=== PATIENT | male | born 1995 | race Two or more races ===

== ENCOUNTER 2020-07-28 23:45 | Emergency (ER) | payer OTHER ==
[~2020-07-28] VITALS: Ht 177.8 cm; Wt 70.3 kg
[2020-07-28 23:45] VITALS: BP 144/86
--- NOTE | 2020-07-28 23:50 | NUR ---
[facility] AT BEDSIDE
== END 2020-07-29 00:09 | disposition home or self-care (01) ==
LOC: ER 23:47
DX: Z02.89 Encounter for other administrative examinations (principal); M54.9 Dorsalgia, unspecified